=== PATIENT | male | born 1985 | race Caucasian/White ===

== ENCOUNTER → 2019-05-14 17:12 | Outpatient (CLI) | payer OTHER, SELFPAY ==
--- NOTE | 2019-05-14 17:16 | DI.RAD.S_ITS ---
PROCEDURE: XR CHEST 2V INDICATIONS: R/O rib Fx or PTX TECHNIQUE: 2 views of the chest were acquired. COMPARISON: None. FINDINGS: Surgical changes and devices: None. Lungs and pleura: Lungs are clear. There may be a trace right-sided pleural effusion with associated atelectasis. No pneumothorax is appreciated. Mediastinum: Mediastinal contours are normal. Heart size is normal. Bones and chest wall: No suspicious bony abnormalities. No displaced fractures are evident. Soft tissues appear unremarkable. IMPRESSION: 1. No displaced right rib fractures. 2. Trace right sided effusion. No definite pneumothorax. Dictated by: Warner Toledo M.D. on 05/14/2019 at 16:33 Approved by: Warner Toledo M.D. on 05/14/2019 at 16:34
== END ==
PROVIDERS: Visit Provider Physician Assistant
DX: R07.81 Pleurodynia (principal)
CPT/HCPCS: 71046